=== PATIENT | female | born 1985 | race American Indian/Alaskan Native ===

== ENCOUNTER 2017-01-28 19:51 | Outpatient (CLI) | payer SELFPAY ==
[2017-01-28 20:29] VITALS: BP 116/72
== END 2017-01-28 20:45 | disposition home or self-care (01) ==
LOC: TRG 19:51
PROVIDERS: ATTEND Obstetrics & Gynecology Gynecology
DX: O62.0 Primary inadequate contractions (principal); O48.0 Post-term pregnancy; Z3A.40 40 weeks gestation of pregnancy

== ENCOUNTER 2017-02-03 09:57 | Inpatient (IN) | payer SELFPAY ==
--- NOTE | 2017-02-03 12:56 | Ultrasound Report ---
BIOPHYSICAL PROFILE: INDICATION: Postdates. COMPARISON: None similar. TECHNIQUE: Transabdominal ultrasound with Doppler interrogation. 2 - breathing movements 2 - movements 2 - posture and tone 2 - Qualitative amniotic fluid volume 8 - TOTAL SCORE OF POSSIBLE 8 Heart Rate (bpm) 143
--- NOTE | 2017-02-03 12:57 | Ultrasound Report ---
OB LIMITED INDICATION: Post dates. COMPARISON: None similar at this institution. TECHNIQUE: Transabdominal grayscale ultrasound with Doppler interrogation. Gestation: Rodriguez Position: Cephalic Amniotic Fluid: WNL (7-24 cm) CHANDNI = 16.7 cm Heart Rate: 143 BPM
--- NOTE | 2017-02-03 18:06 | History and Physical Report ---
History of Present Illness Date of examination: 02/03/17 Date of admission: 02/03/17 16:47 Chief complaint: Painful contractions today History of present illness: 30-year-old at 41+1 weeks presents in active labor, she is a [facility] patient. care has been complicated by late presentation otherwise unremarkable; initial care was in [place] and she arrived at ~ 36 weeks. 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 denies: smoking, alcohol abuse, prescription drug abuse, IV drug use - Obstetrical History Expected Date of Delivery: 01/26/17 Actual Gestation: 41 Week(s) 1 Day(s) : 1 Para: 0 Medications and Allergies Allergies Allergy/AdvReac Type Severity Reaction Status Date / Time No Known Allergies Allergy Unverified 01/28/17 20:10 Home Medications Medication Instructions Recorded Confirmed Last Taken Type Vit-Fe Fumar-FA [ 1 tab PO QDAY 02/03/17 02/03/17 02/02/17 21: 00 History Vitamin] 1 Review of Systems Constitutional: no fever, no chills Cardiovascular: no chest pain, no edema, no syncope, no lightheadedness, no shortness of breath, no dyspnea on exertion, no high blood pressure Respiratory: no cough, no excessive sputum, no shortness of breath, no dyspnea on exertion Gastrointestinal: abdominal pain (Painful ctx's), no nausea, no vomiting Genitourinary: leakage of fluid, no vaginal bleeding, no vaginal discharge - Vital Signs Vital signs: Vital Signs Pulse BP 73 118/68 02/03/17 10:10 02/03/17 10:10 Temp Pulse Resp BP Pulse Ox 97.1 F L 80 20 121/82 02/03/17 17:33 02/03/17 17:33 02/03/17 17:33 02/03/17 17:33 - Physical Exam Abdomen: Positive: normal appearance, soft. Negative: distention, tenderness, guarding, rigidity Genitourinary (Female): Positive: normal external genitalia Uterus: Positive: enlarged (EFW ~ 3600). Negative: tender Adnexa: both: normal Extremities: Positive: normal - Obstetrical FHR: category 1 Cervical Dilatation: 4.5 Cervical Effacement Percentage: 100 station: -2 Results All other labs normal. Assessment and Plan A: 30-year-old at 41+1 weeks in active labor -Cat 1 tracing -Thick Meconium s/p SROM P: -Admit -Routine labs -Epidural prn -GBS prophylaxis -Anticipate - Patient Problems (1) 41 weeks gestation of Current Visit: Yes Status: Acute (2) Active labor at term Current Visit: Yes Status: Acute (3) Thick meconium stained amniotic fluid Current Visit: Yes Status: Acute (4) Late care affecting in third trimester Current Visit: Yes Status: Acute
[2017-02-03] MEDS ORDERED: ZOFRAN IV PRN (18:10)
[2017-02-03] MEDS ORDERED: MINERAL OIL PO PRN (18:10)
[2017-02-03] MEDS ORDERED: BRETHINE SUB-Q PRN (18:10)
[2017-02-03] MEDS ORDERED: SUBLIMAZE IV PRN (18:10)
[2017-02-03] MEDS ORDERED: XYLOCAINE 2% INFILTRATI ONE (18:10)
[2017-02-03] MEDS ORDERED: ePHEDrine SULFATE IV PRN ×2 (18:10→21:24)
[2017-02-03] MEDS ORDERED: BRETHINE IVP PRN (18:10)
[2017-02-03] MEDS ORDERED: POLYCILLIN/NS 2 GM/100 ML 2 GM/100 ML BAG IV ONE (18:10)
[2017-02-03 18:43] LABS: Hematocrit 32.8 % (30.3-42.9); Hemoglobin 11.1 gm/dl (10.1-14.3); Mean Corpuscular HGB Conc 34 % (30-34); Mean Corpuscular Hemoglobin 32 pg (28-32); Mean Corpuscular Volume 95 fl (79-97); Platelet Count 236 K/mm3 (140-440); Red Blood Count 3.46 M/mm3 (3.65-5.03); Red Cell Distribution Width 13.6 % (13.2-15.2); White Blood Count 11.2 K/mm3 (4.5-11.0)
[2017-02-03] MEDS ORDERED: LACTATED RINGERS 1,000 ML IV SCH (19:00)
[2017-02-03] MEDS ORDERED: PITOCin/NS 20 UNIT/1000ML DRIP 20 UNITS/1,000 ML BAG IV SCH (19:00)
[2017-02-03] MEDS ORDERED: PITOCin/NS 30 UNIT/500ML 30 UNITS/500 ML BAG IV SCH ×2 (19:00)
[2017-02-03 19:08] LABS: HIV-1 Antigen p24 Non React (Non React); HIVR-1/2 Ab Non React (Non React)
[2017-02-03] MEDS ORDERED: NARCAN 2 MG/2 ML IV PRN (21:24)
--- NOTE | 2017-02-03 21:24 | Anesthesia Consultation ---
Anesthesia Consult and Med Hx Date of service: 02/03/17 - Airway Anesthetic Teeth Evaluation: Good ROM Head & Neck: Adequate Mental/Hyoid Distance: Adequate Mallampati Class: Class II Intubation Access Assessment: Good - Pulmonary Exam CTA: Yes - Cardiac Exam Cardiac Exam: No Murmur - Pre-Operative Health Status ASA Pre-Surgery Classification: ASA2 Proposed Anesthetic Plan: Epidural - Pulmonary Hx Asthma: No - Cardiovascular System Hx Hypertension: No - Central Nervous System Hx Seizures: No Hx Psychiatric Problems: No - Endocrine Hx Renal Disease: No Hx Hypothyroidism: No Hx Hyperthyroidism: No - Hematic Hx Sickle Cell Disease: No - Other Systems Hx Alcohol Use: No
[2017-02-03] MEDS ORDERED: fentaNYL-BUPIV 2 MCG/ML-0.125% 200 MCG/100 ML BAG EPIDURAL SCH (22:00)
[2017-02-03] MEDS ORDERED: POLYCILLIN/NS 1 GM/50 ML 1 GM/50 ML BAG IV SCH (22:11)
[2017-02-04] MEDS ORDERED: HEMABATE IM ONE ×2 (01:00→01:10)
[2017-02-04] MEDS ORDERED: METHERGINE IM ONE ×2 (01:00→01:06)
[2017-02-04] MEDS ORDERED: NACL 0.9% 500 ML 500 ML IV ONE (01:26)
[2017-02-04] MEDS ORDERED: PHENERGAN PO PRN (01:28)
[2017-02-04] MEDS ORDERED: BENADRYL PO PRN (01:28)
[2017-02-04] MEDS ORDERED: ZOFRAN IV PRN (01:28)
[2017-02-04] MEDS ORDERED: LANSINOH TP PRN (01:28)
[2017-02-04] MEDS ORDERED: DULCOLAX PR PRN (01:28)
[2017-02-04] MEDS ORDERED: PHENERGAN PR PRN (01:28)
[2017-02-04] MEDS ORDERED: TUCKS PAD TP PRN (01:28)
[2017-02-04] MEDS ORDERED: MILK OF MAGNESIA PO PRN (01:28)
[2017-02-04] MEDS ORDERED: DERMOPLAST TP PRN (01:28)
[2017-02-04] MEDS ORDERED: TYLENOL PO PRN (01:28)
--- NOTE | 2017-02-04 01:35 | Procedure Note ---
OB Delivery Note - Delivery Date of Delivery: 02/04/17 Surgeon: LEE SMITH Estimated blood loss: other (600cc) - Vaginal Delivery presentation: vertex Delivery position: OA Intrapartum events: no care (Late transfer at 36wks from [facility]), meconium, hemorrhage, shoulder dystocia Delivery induction: none Delivery augmentation: pitocin Delivery monitor: external FHT, external uterine Route of delivery: Delivery placenta: spontaneous Delivery cord: nuchal cord (Tight and cut on perineum), 3 umbilical vessels Episiotomy: none Delivery laceration: none Anesthesia: epidural Delivery comments: Shoulder dystocia encountered. Patient asked to stop pushing, Magaly position initiated and gentle traction applied with subsequent delivery of anterior shoulder. Tight nuchal cord noted and cut on perineum. Soft tissue dystocia encountered with difficulty in delivering the rest of 's body despite pushing. Posterior ARM then delivered with the rest of the subsequently delivered. NICU present at delivery Duration of procedure is less than 1 minute Post vaginal bleeding then noted after delivery of placenta. Examination showed bleeding coming from the cervix, no laceration noted. Bleeding controlled with Methergine, Pitocin and Hemabate. Blood loss ~ 600 mL - Infant A at 1 minute: 1 at 5 minutes: 8 Infant Gender: Female (Del @ 12:58 AM, weight is 8#1 or 3667 g)
[2017-02-04] MEDS ORDERED: SODIUM CHLORIDE FLUSH SYRINGE 10 ML IV NR (02:00)
[2017-02-04] MEDS ORDERED: PITOCin/NS 20 UNIT/1000ML DRIP 20 UNITS/1,000 ML BAG IV SCH (02:00)
[2017-02-04 02:01] LABS: ISTAT Base Excess -5; ISTAT HCO3 23.4; ISTAT PH 7.199 (7.35-7.45); ISTAT PO2 23 (80-105); ISTAT SO2 28; ISTAT TCO2 25
[2017-02-04] MEDS: NORCO 5/325 PO PRN (02:28)
[2017-02-04 04:45] LABS: Hematocrit 33.6 % (30.3-42.9); Hemoglobin 11.1 gm/dl (10.1-14.3)
[2017-02-04] MEDS ORDERED: SENOKOT S PO SCH (06:00)
[2017-02-04] MEDS: MOTRIN PO SCH ×3 (06:54→20:25)
[2017-02-04] MEDS: METHERGINE PO SCH ×3 (06:55→22:41)
[2017-02-04] MEDS: PRENATAL VITAMIN PO SCH (10:55)
[2017-02-04] MEDS: COLACE PO SCH ×2 (10:55→22:44)
[2017-02-04] MEDS: FEOSOL PO SCH ×2 (10:56→22:41)
[2017-02-04] MEDS ORDERED: FLUARIX QUAD 2016-2017(36 MOS+) IM ONE (12:00)
[2017-02-04 14:33] LABS: Hematocrit 28.3 % (30.3-42.9); Hemoglobin 9.5 gm/dl (10.1-14.3)
[2017-02-05] MEDS: MOTRIN PO SCH ×2 (03:06→22:06)
[2017-02-05] MEDS ORDERED: BOOSTRIX IM ONE (06:00)
[2017-02-05] MEDS ORDERED: M-M-R II VACCINE SUB-Q ONE (06:05)
--- NOTE | 2017-02-05 08:55 | Progress Note ---
Assessment and Plan - Patient Problems (1) (normal spontaneous vaginal delivery) Onset Date: 02/05/17 Current Visit: Yes Status: Resolved Plan to address problem: A: S/P - PPD #1 Doing well Asymptomatic anemia - stable P: May go home today. Subjective - Subjective Date of service: 02/05/17 Principal diagnosis: s/p - PPD #1 Interval history: Pt is feeling well , complains of body aches. Bleeding improved. Patient reports: appetite normal, voiding normally, pain well controlled, flatus , ambulating normally : doing well, nursing well Objective - Vital Signs Latest vital signs: Vital Signs Temp Pulse Resp BP 02/04/17 16:23 97.9 F 72 16 128/75 02/04/17 12:00 98.6 F 78 16 144/70 Intake and Output 02/04/17 02/05/17 02/05/17 22:59 06:59 14:59 Intake Total 480 Balance 480 Intake: Oral 480 Other: Total, Intake Amount 480 # Voids Void 1 - Exam Breasts: Present: deferred Cardiovascular: Present: Regular rate Lungs: Present: Clear to auscultation Abdomen: Present: normal appearance, soft Uterus: Present: normal, firm, fundal height below umbilicus Extremities: Present: normal - Labs Labs: Abnormal lab results 02/04/17 Range/Units 14:14 Hgb 9.5 L (10.1-14.3) gm/dl Hct 28.3 L (30.3-42.9) % Laboratory Tests 02/03/17 02/03/17 02/03/17 18:00 18:00 18:00 WBC 11.2 H RBC 3.46 L Hgb 11.1 Hct 32.8 MCV 95 MCH 32 MCHC 34 RDW 13.6 Plt Count 236 POC ABG pH POC ABG pCO2 POC ABG pO2 POC ABG HCO3 POC ABG Total CO2 POC ABG O2 Sat POC ABG Base Excess HIV 1&2 Antibody Rapid Non react HIV P24 Antigen Non react Blood Type A POSITIVE Antibody Screen TNR REENA Antibody Screen Negative Crossmatch See Detail 02/04/17 02/04/17 02/04/17 01:41 04:03 14:14 WBC RBC Hgb 11.1 9.5 L Hct 33.6 28.3 L MCV MCH MCHC RDW Plt Count POC ABG pH 7.199 L POC ABG pCO2 60.0 H POC ABG pO2 23 L POC ABG HCO3 23.4 POC ABG Total CO2 25 POC ABG O2 Sat 28 POC ABG Base Excess -5 HIV 1&2 Antibody Rapid HIV P24 Antigen Blood Type Antibody Screen REENA Antibody Screen Crossmatch
--- NOTE | 2017-02-05 09:01 | Discharge Summary ---
Providers - Providers Date of Admission: 02/03/17 16:47 Date of discharge: 02/05/17 Attending physician: LEE SMITH Primary care physician: LEE SMITH Hospitalization Reason for admission: active labor, IUP at term Delivery: Episiotomy: none Laceration: none Other procedures: none complications: none Discharge diagnosis: IUP at term delivered [place] baby: female Hospital course: Unremarkable. Condition at discharge: Good Disposition: DISCHARGED TO HOME OR SELFCARE - Discharge Diagnoses (1) (normal spontaneous vaginal delivery) Status: Resolved Plan - Discharge Medications Prescriptions: HYDROcodone/APAP 5-325 [Louann 5/325] 1 each PO Q6HR PRN #10 tablet PRN Reason: Pain Ibuprofen [Motrin 600 MG tab] 600 mg PO Q8H PRN #30 tablet PRN Reason: Pain Multivitamin with Iron [Multivitamins with Iron] 1 each PO DAILY #30 tablet - Provider Discharge Summary Activity: routine, no sex for 6 weeks, no heavy lifting 4 weeks, no strenuous exercise Diet: routine Instructions: routine Additional instructions: [] Smoking cessation referral if applicable(refer to patient education folder for contact #) [] Refer to [employer] Booklet Call your doctor immediately for: * Fever > 100.5 * Heavy vaginal bleeding ( >1 pad per hour) * Severe persistent headache * Shortness of breath * Reddened, hot, painful area to leg or breast * Drainage or odor from incision. * Keep incision clean and dry at all times and follow doctor's instructions regarding bathing/showering - Follow up plan Follow up: LEE SMITH MD [Primary Care Provider] - 6 Weeks
[2017-02-05] MEDS: NORCO 5/325 PO PRN (09:30)
--- NOTE | 2017-02-05 09:40 | Progress Note ---
Subjective Date of service: 02/05/17 Principal diagnosis: s/p - PPD #1 Interval history: 1st day after normal vaginal delivery Patient is in the bed, comfortable. Pain is well controlled with pain meds. Ambulated well. No residual neurological deficit. No anesthesia complications Objective - Constitutional Vitals: Vital Signs - 12hr 02/05/17 08:54 Temperature 98.3 F Pulse Rate [ 78 From Monitor] Respiratory 18 Rate Blood Pressure 126/75 [Left Arm] - Labs CBC & Chem 7: 02/04/17 14:14 Labs: Abnormal lab results 02/04/17 Range/Units 14:14 Hgb 9.5 L (10.1-14.3) gm/dl Hct 28.3 L (30.3-42.9) %
[2017-02-05] MEDS: PRENATAL VITAMIN PO SCH (10:09)
[2017-02-05] MEDS: COLACE PO SCH ×2 (10:09→22:06)
[2017-02-05] MEDS: FEOSOL PO SCH ×2 (10:09→22:05)
[2017-02-05] MEDS: METHERGINE PO SCH ×2 (18:55→22:06)
[2017-02-06] MEDS: NORCO 5/325 PO PRN (04:30)
[2017-02-06] MEDS: METHERGINE PO SCH (06:46)
[2017-02-06] MEDS: MOTRIN PO SCH ×4 (06:48→12:00)
[2017-02-06 09:44] VITALS: BP 120/70
[2017-02-06] MEDS: FEOSOL PO SCH (10:44)
[2017-02-06] MEDS: PRENATAL VITAMIN PO SCH (10:44)
[2017-02-06] MEDS: COLACE PO SCH (10:45)
== END 2017-02-06 13:56 | disposition home or self-care (01) | DRG 774 ==
LOC: TRG 09:57 → LD 16:47 → OB 02-04 04:14
PROVIDERS: ADMIT Obstetrics & Gynecology Gynecology; ATTEND Obstetrics & Gynecology Gynecology
PROC: 10E0XZZ Delivery of Products of Conception, External Approach (ICD-10-PCS; principal; 2017-02-04)
PROC: 10907ZC Drainage of Amniotic Fluid, Therapeutic from Products of Conception, Via Natural or Artificial Opening (ICD-10-PCS; 2017-02-04)
PROC: 3E0S3CZ (ICD-10-PCS; 2017-02-04)
PROC: 00HU33Z Insertion of Infusion Device into Spinal Canal, Percutaneous Approach (ICD-10-PCS; 2017-02-04)
PROC: 4A033R1 Measurement of Arterial Saturation, Peripheral, Percutaneous Approach (ICD-10-PCS; 2017-02-04)
PROC: 3E0234Z Introduction of Serum, Toxoid and Vaccine into Muscle, Percutaneous Approach (ICD-10-PCS; 2017-02-04)
DX: O66.0 Obstructed labor due to shoulder dystocia (principal); O67.9 Intrapartum hemorrhage, unspecified; O72.1 Other immediate postpartum hemorrhage; O69.1XX0 Labor and delivery complicated by cord around neck, with compression, not applicable or unspecified; O77.0 Labor and delivery complicated by meconium in amniotic fluid; O99.824 Streptococcus B carrier state complicating childbirth; O09.33 Supervision of pregnancy with insufficient antenatal care, third trimester; Z3A.41 41 weeks gestation of pregnancy; Z37.0 Single live birth; Z23 Encounter for immunization
CPT/HCPCS: 36415; 59025; 76815; 76819; 82803; 85014; 85018; 85027; 86850; 86900; 86901; 86920; 87806; 90471; 90686; 99211; G0008; G0463; J0290; J2210; J2590; J3010; J7120